=== PATIENT | male | born 1985 | race Asian ===

== ENCOUNTER 2020-02-08 05:09 | Inpatient (IN) | payer OTHER ==
[~2020-02-08] VITALS: Ht 175.3 cm; Wt 97.5 kg
[2020-02-08] VITALS (11 sets, daily range): BP systolic 105–131; BP diastolic 52–96
[~2020-02-08 05:09] MED LIST: ALBUTEROL SULF8.5 G1 INH; LORATADINE10 M2 PO; [UNRECOGNIZED DRUG - REMARK] PO
[2020-02-08] MEDS ORDERED: HYDROmorphone 1mg/ml Carpuject SUBQ PRN (06:00)
[2020-02-08] MEDS ORDERED: HYDROmorphone 1mg/ml Carpuject IVP PRN (06:00)
[2020-02-08] MEDS ORDERED: Morphine Sulfate 2mg/ml Inj(IV/IM USE ONLY) IM PRN (06:00)
[2020-02-08] MEDS ORDERED: Chloraseptic Spray 20mL Bottle ORAL PRN (06:00)
[2020-02-08] MEDS ORDERED: HYDROcodone/Acetamin 10/325 tab ORAL PRN (06:00)
[2020-02-08] MEDS ORDERED: Albuterol ud Inhalation HHN PRN (06:15)
[2020-02-08] MEDS ORDERED: Thrombin 5000 units TOPIC ONE (06:41)
[2020-02-08] MEDS ORDERED: Bupivacaine 0.5% Inj 30 ml vial INJ ONE (06:41)
[2020-02-08] MEDS ORDERED: Gelfoam Size TOPIC ONE (06:41)
[2020-02-08] MEDS ORDERED: Lidocaine 1% Plain 30 ml INJ ONE ×2 (06:41→07:01)
[2020-02-08] MEDS ORDERED: Bacitracin 50000 Units Vial ONE (06:41)
[2020-02-08] MEDS ORDERED: Meperidine 25mg/1ml Inj (FOR RIGORS ONLY) IV PRN (07:00)
[2020-02-08] MEDS ORDERED: Sterile Water Irrig 1000ml IRRIG ONE (07:00)
[2020-02-08] MEDS ORDERED: Hydromorphone 0.5mg/0.5ml inj IVP PRN (07:00)
[2020-02-08] MEDS ORDERED: Acetaminophen (Non formulary) 100 ML IV ONE (07:00)
[2020-02-08] MEDS ORDERED: HYDROcodone/Acetamin 7.5/325 tab ORAL PRN (07:00)
[2020-02-08] MEDS ORDERED: Midazolam 2mg/2ml Inj IVP PRN (07:00)
[2020-02-08] MEDS ORDERED: oxyCODONE HCL/Acetaminophen 5/325mg ORAL PRN (07:00)
[2020-02-08] MEDS ORDERED: LORazepam Inj 2mg/ml 1ml IV PRN (07:00)
[2020-02-08] MEDS ORDERED: Lidocaine 1% MPF 10mg/ml 5ml ONE (07:00)
[2020-02-08] MEDS ORDERED: fentaNYL 100 mcg/2 mL IV PRN (07:00)
[2020-02-08] MEDS ORDERED: Labetalol 5mg/ml 20ml vial IV PRN (07:00)
[2020-02-08] MEDS ORDERED: NS Irrig 1000ml ONE (07:00)
[2020-02-08] MEDS ORDERED: Ketorolac 30mg Inj IV PRN ×2 (07:00)
[2020-02-08] MEDS ORDERED: Sodium Chloride 10ml vial INJ ONE (07:00)
[2020-02-08] MEDS ORDERED: Metoclopramide 10mg/2ml Inj IVP PRN (07:00)
[2020-02-08] MEDS ORDERED: HYDROcodone/Acetamin 5/325 tab ORAL PRN (07:00)
[2020-02-08] MEDS ORDERED: LR 1000ml 1,000 ML IVLG SCH (07:00)
[2020-02-08] MEDS ORDERED: DiphenhydrAMINE 50mg/ml Inj IVP PRN (07:00)
[2020-02-08] MEDS ORDERED: propofoL 1,000mg/100ml IV ONE (07:00)
[2020-02-08] MEDS ORDERED: ceFAZolin sod 1 GM in NS 55 ML IVPB ONE (07:00)
[2020-02-08] MEDS ORDERED: Atropine Sulfate 0.4mg/ml inj IVP PRN (07:00)
--- NOTE | 2020-02-08 07:00 | Anethesia Preoperative Eval ---
Anesthesia Pre-op PMH/ROS General Date of Evaluation: Feb 08, 2020 Time of Evaluation: 07:06 Anesthesiologist: Ángela ASA Score: ASA 2 Mallampati Score Class I : Soft palate, uvula, fauces, pillars visible Class II: Soft palate, uvula, fauces visible Class III: Soft palate, base of uvula visible Class IV: Only hard plate visible Mallampati Classification: Class II Surgeon: Gonzalo Diagnosis: Back Pain Surgical Procedure: L5-S1, L4-5 Microdiscectomy Anesthesia History: none Family History: no anesthesia problems Allergies: Coded Allergies: No Known Allergies (Unverified , 02/06/20) Medications: see eMAR Patient NPO?: Yes Past Medical History Cardiovascular: Reports: HTN Pulmonary: Reports: asthma Other: obesity - BMI 32 Anesthesia Pre-op Phys. Exam Physician Exam Last Vital Signs Date Time Temp Pulse Resp B/P (MAP) Pulse Ox O2 Delivery O2 Flow Rate FiO2 02/08/20 05:42 Room Air 02/08/20 05:40 98.1 82 18 131/96 (108) 98 Constitutional: NAD Neurologic: CN 2-12 intact Cardiovascular: RRR Respiratory: CTA Gastrointestinal: S/NT/ND Airway Exam Mallampati Score: Class II MO: full ROM: full Teeth: intact Anesthesia Pre-op A/P Risk Assessment & Plan Assessment: ASA 2 Plan: GA, SED, GlideScope Status Change Before Surgery: No Pre-Antibiotics Dru Grams Ancef IV Given Within 1 Hr of Incision: Yes Time Given: 07:31 Meir Motta MD Feb 08, 2020 07:00
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
[2020-02-08] MEDS ORDERED: Rocuronium Bromide 50mg/5ml Inj IV ONE (07:15)
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
[2020-02-08] MEDS ORDERED: fentaNYL 100 mcg/2 mL IV ONE (08:16)
--- NOTE | 2020-02-08 08:34 | Immediate Post-Op Evaluation ---
Immediate Post-Op Evalulation Immediate Post-Op Evalulation Procedure: L5-S1, L4-5 Microdiscectomy Date of Evaluation: Feb 08, 2020 Time of Evaluation: 10:22 IV Fluids: 1000 LR Blood Products: 0 Estimated Blood Loss: 50 Urinary Output: 200 Blood Pressure Systolic: 128 Blood Pressure Diastolic: 89 Pulse Rate: 94 Respiratory Rate: 16 O2 Sat by Pulse Oximetry: 99 Temperature (Fahrenheit): 97.6 Pain Score (1-10): 2 Nausea: No Vomiting: No Complications 0 Patient Status: awake, reacts, patent, extubated, none Hydration Status: adequate Dru Grams Ancef IV Given Within 1 Hr of Incision: Yes Time Given: 07:31 Meir Motta MD Feb 08, 2020 08:34
--- NOTE | 2020-02-08 08:35 | 48 Hour Post Anesthesia Eval ---
Post Anesthesia Evaluation Procedure: L5-S1, L4-5 Microdiscectomy Date of Evaluation: Feb 08, 2020 Time of Evaluation: 12:43 Blood Pressure Systolic: 131 0: 78 Pulse Rate: 82 Respiratory Rate: 18 Temperature (Fahrenheit): 98 O2 Sat by Pulse Oximetry: 98 Airway: patent Nausea: No Vomiting: No Pain Intensity: 2 Hydration Status: adequate Cardiopulmonary Status: Stable Mental Status/LOC: patient returned to baseline Follow-up Care/Observations: 0 Post-Anesthesia Complications: 0 Follow-up care needed: ready to discharge Meir Motta MD Feb 08, 2020 08:35
[2020-02-08] MEDS ORDERED: Glycopyrrolate 0.2mg/ml 1ml Vial ONE (09:35)
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
[2020-02-08] MEDS ORDERED: Naloxone 0.4mg/ml Inj IVP PRN (10:00)
--- NOTE | 2020-02-08 11:30 | NUR ---
NURSE NOTES: Patient arrived via hospital bed after L4-L5 microdescectomy, L5-S1 hemilaminotomy. Received report from Camilla WIND UP WORKER. No SOB noted. Denies any pain at this time. Back surgical dressing site is dry/intact. SCD is on bilateral legs. Lt hand IV is patent. Unit orientation was given. Provided call light. Bed in lowest position, call light within reach. Will continue to monitor.
[2020-02-08] MEDS ORDERED: D5 1/2NS 1,000 ML IV SCH (13:00)
--- NOTE | 2020-02-08 13:41 | NUR ---
NURSE NOTES: Spoke to regarding patient and new order received. Order read back and carried out.
[2020-02-08] MEDS ORDERED: ceFAZolin sod 1 GM in D5W 55 ML IV SCH (15:30)
--- NOTE | 2020-02-08 16:41 | NUR ---
NURSE NOTES: Patient ambulated with SONIYA Oliva with steady gait. Patient voided around @1400. Discharge instruction was given to pt. Verified belongings list with patient. IV access was removed. Pt discharged home in stable condition.
--- NOTE | 2020-02-08 16:58 | Diagnostic Imaging Report ---
INDICATION: Pain, intraoperative TECHNIQUE: Intraoperative imaging Fluoroscopy time: 3.5 seconds Total dose: 0.07712 mGym2 Total number of images: 2 COMPARISON: None FINDINGS: Intraoperative images document surgical tool posterior to the L4-5 disc. IMPRESSION: Intraoperative imaging, as described
--- NOTE | 2020-02-09 19:00 | Operative Note - Dictated ---
DATE OF OPERATION: 02/08/2020 SURGEON: Juan Sánchez MD. RAILROAD CAR CLEANER: VINAY Cordon. ANESTHESIOLOGIST: Meir Motta MD. ANESTHESIA: General with intubation. ADMITTING/PREOPERATIVE DIAGNOSIS: Post-trauma lumbar herniated nucleus pulposus, radiculopathy, left lower extremity neurologic deficit. Refractive to conservative care. OPERATIVE PROCEDURE: 1. L4-L5 . 2. Left superior L5, inferior L5, superior S1 hemilaminotomy. 3. Microdiscectomy L4-L5. Hemilaminotomy L5-S1 with foraminotomy and nerve root decompression. 4. Local anesthetic applied by surgeon. 5. Intraoperative fluoroscopy interpreted by surgeon. 6. High-power magnification utilization. ESTIMATED BLOOD LOSS: Minimal. DRAINS: None. COMPLICATIONS: None. SPECIMEN: Disc fragments to pathology. POSTOPERATIVE CONDITION: Good/stable. PROCEDURE IN DETAIL: The patient was brought to the operating room and in the supine position, general anesthesia with intubation was induced. IV antibiotics and IV Decadron were administered 30 minutes prior to incision time. The patient was carefully turned and positioned in the prone position. Lumbodorsal spine was sterilely prepped. Spinal needle was placed midline into the subcutaneous tissue only and a cross-table radiograph was obtained interpreted by surgeon for determination of incision level placement. Needle was removed under sterile conditions and the back was sterilely prepped and draped free in the usual sterile fashion. A longitudinal incision over the appropriate interval was sharply placed through dermis and epidermis. Electrocautery dissection was carried through the subcutaneous tissue to the level of the lumbodorsal fascia was incised bilaterally the subperiosteal dissection left paraspinal musculature. Retractors placed. Marker placed and cross-table image obtained interpreted by surgeon for the correct level for further dissection. Level was marked. L4-L5 pars interarticularis was identified without violation of facet capsule. A left hemilaminotomy was performed inferior L4, minimal superior L5. Ligament flavum excised. Integrity of the pars interarticularis maintained at all times. Dissection was carried lateral to the dural tube. A gentle retraction in the medial direction of the dura and exiting nerve root. Disc space was identified. An annulotomy was performed at L4-L5 and microdiscectomy was undertaken central and left of midline. No dural tears or leakage occurred anytime during the procedure. No gross bleeding from the disc space. Disc space was subsequently irrigated with antibiotic-containing saline. No further fragments identified. FloSeal applied. Retractors were placed at the L5-S1 interval. Pars interarticularis of L5 were identified clearly. A left inferior L5 hemilaminotomy and superior left S1 hemilaminotomy were performed under high-power magnification. Ligamentum flavum excised. Foraminotomy followed with decompression of the exiting nerve root performed. Gentle probing of the interval with a ball-tip probe revealed no further compression of the dural tube or the exiting nerve root. Wound was copiously irrigated with antibiotic-containing saline. FloSeal applied. The lumbodorsal fascia was reapproximated with #1 Vicryl suture. Following reapproximation, multiple layers of subcutaneous tissue. Dermis and epidermis further reapproximated with staple sutures. A 1% lidocaine was introduced through the subcutaneous tissue/dermal interval bilateral aspects of the wound with local anesthetic. Sterile bandage applied and maintained in place with tape. The patient was turned carefully from the prone to the supine position on the transport bed where he was awakened and extubated in the operating room, and transported to postop recovery in good stable condition. SSEP monitoring remained stable throughout the operation. Juan Sánchez M.D. DR: TAMMY JOB#: [id number] CC:
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
== END 2020-02-08 16:41 | disposition home or self-care (01) | DRG 520 ==
LOC: SUR 05:09 → 3E 11:52
PROC: 0SB20ZZ Excision of Lumbar Vertebral Disc, Open Approach (ICD-10-PCS; principal; 2020-02-08 07:00)
DX: M51.16 Intervertebral disc disorders with radiculopathy, lumbar region (principal); G89.18 Other acute postprocedural pain; V89.2XXS Person injured in unspecified motor-vehicle accident, traffic, sequela; I10 Essential (primary) hypertension
CPT/HCPCS: 72020; 76000; 94003; 94150; J2405; U0002